=== PATIENT | female | born 1960 | race Hispanic/Latino ===

== ENCOUNTER 2020-02-14 09:40 | Emergency (ER) | payer OTHER ==
[~2020-02-14] VITALS: Ht 157.5 cm; Wt 81.6 kg
--- NOTE | 2020-02-14 11:18 | Diagnostic Imaging Report ---
EXAMINATION: Head and face CT without contrast. HISTORY: Head trauma, facial laceration. COMPARISON: None. TECHNIQUE: Multidetector axial images were obtained without contrast from the foramen magnum to the vertex and over the face. The images were reconstructed using brain and bone algorithms. Dose modulation, iterative reconstruction, and/or weight based adjustment of the mA/kV was utilized to reduce the radiation dose to as low as reasonably achievable. Head CT findings: Skull: No lytic or blastic lesions. No fractures. Parenchyma: Few scatter juxtacortical white matter hypodensities, most likely nonspecific chronic microvascular ischemic changes.. No mass, hemorrhage or CT evidence of acute vascular insult. Brain volume: Normal for age. Ventricles: No hydrocephalus or displacement. Arteries: No density suggestive of thrombus. Dural sinuses: No abnormal density. Extra-axial spaces: No abnormal density. Foramen magnum: No mass, Chiari malformation, or basilar invagination. Sella: Pallially empty, mostly CSF filled. Paranasal/mastoid sinuses: Imaged portions unremarkable. Face CT findings: Bones: Unremarkable. Facial soft tissues: Right forehead soft tissues swelling and laceration. Orbits contents: Unremarkable. Paranasal sinuses and drainage pathways: Clear and patent. Nasal septum and nasal cavities: Midline. Anatomic variations: No significant anatomic variations. Teeth: No acute abnormality of the visualized teeth. IMPRESSION: Head CT: 1. No acute posttraumatic intracranial hemorrhage. 2. Mild went matter chronic microvascular changes. Face CT: 1. No acute facial fractures. 2. Right forehead soft tissue swelling/laceration. Signed by: Dr. Tiffanie Strickland M.D. on 02/14/2020 11:14 AM
--- NOTE | 2020-02-14 11:23 | Diagnostic Imaging Report ---
EXAMINATION: CT of the cervical spine HISTORY: Trauma, neck pain. COMPARISON: None available TECHNIQUE: Multidetector helical axial images were obtained without contrast from the foramen magnum to T1. Dose modulation, iterative reconstruction, and/or weight based adjustment of the mA/kV was utilized to reduce the radiation dose to as low as reasonably achievable. FINDINGS: Alignment: Normal alignment and lordosis Soft tissues: Normal Vertebrae: Normal height and density. No acute fracture, infection or neoplasm Degenerative changes: C1-C2 to C4-C5: Normal C5-C6: Disc osteophyte compresses formation and uncovertebral arthrosis. [id number] foraminal stenoses. C6-C7: Disc ossified complex formation and uncovertebral arthrosis minimal left. No significant canal or foraminal stenosis. C7-T1: Normal IMPRESSION: 1. No acute cervical spine postraumatic abnormalities. 2. Mild chronic degenerative changes as above. Note: Acute postraumatic spinal cord, vascular or ligamentous injuries cannot adequately be assessed by CT. Signed by: Dr. Tiffanie Strickland M.D. on 02/14/2020 11:19 AM
--- NOTE | 2020-02-14 12:25 | Emergency Department Note ---
History of Present Illnes History of Present Illness Chief Complaint: Laceration History of Present Illness This is a 60 year old female arrived to the ED with complaints of a mec hanical fall. Chief Complaint Comment LACERATION ABOVE RIGHT EYE. S/P TRIP AND FALL WHILE WALKING FAST. ACTIVE BLEEDING TO SITE. COVERED WITH KERLEX FOR PRESSURE. PATIENT DENIES ANY BLURRY VISION. NO LOC. Historian: Patient Arrival Mode: Car Additional Treatment INSULATION BLOWER: NONE Timing of current episode: intermittent Chronicity: new Context: Reports trauma/injury Relieving factors: none Exacerbating factors: none Past Medical/Family History Physician Review I have reviewed the patient's past medical and family history. Any updates have been documented here. Past Medical History Recent Fever: No Clinical Suspicion of Infectio: No New/Unexplained Change in Ment: No Past Medical History: Hypertension, GERD Past Surgical History: Hysterectomy Other Surgery: HEMORRHOIDS Social History Smoking Cessation: Never Smoker Counseling Performed: No Alcohol Use: None Any Illegal Drug Use: No Other Any Pre-Existing Lines (PICC,: No Review of Systems Review of Systems Constitutional: Reports no symptoms EENTM: Reports no symptoms Cardiovascular: Reports no symptoms Respiratory: Reports no symptoms Gastrointestinal: Reports no symptoms Genitourinary: Reports no symptoms Musculoskeletal: Reports no symptoms Integumentary: Reports no symptoms Neurological: Reports no symptoms Psychological: Reports no symptoms Endocrine: Reports no symptoms Hematological/Lymphatic: Reports no symptoms Physical Exam Related Data Allergies: Uncoded Allergies: NKDA (Allergy, Mild, 07/14/09) Triage Vital Signs Vital Signs Date Time Temp Pulse Resp B/P (MAP) Pulse Ox O2 Delivery O2 Flow Rate FiO2 02/14/20 10:08 98.7 99 18 130/69 99 Room Air Physical Exam CONSTITUTIONAL Constitutional: Present well-developed, Present well-nourished HENT HENT: Present normocephalic, Present oropharynx clear/moist, Present nose normal, Present other (superficial abrasion over left eyebrow ) HENT L/R: Present left ext ear normal, Present right ext ear normal EYES Eyes: Reports PERRL, Reports conjunctivae normal NECK Neck: Present ROM normal PULMONARY Pulmonary: Present effort normal, Present breath sounds normal CARDIOVASCULAR Cardiovascular: Present regular rhythm, Present heart sounds normal, Present capillary refill normal, Present normal rate GASTROINTESTINAL Abdominal: Present soft, Present nontender, Present bowel sounds normal GENITOURINARY Genitourinary: Present exam deferred SKIN Skin: Present warm, Present dry MUSCULOSKELETAL Musculoskeletal: Present ROM normal NEUROLOGICAL Neurological: Present alert, Present oriented x 3, Present no gross motor or sensory deficits PSYCHOLOGICAL Psychological: Present mood/affect normal, Present judgement normal Results Imaging Imaging results reviewed: Yes Impressions Head CT: 1. No acute posttraumatic intracranial hemorrhage. 2. Mild went matter chronic microvascular changes. Face CT: 1. No acute facial fractures. 2. Right forehead soft tissue swelling/laceration. Imaging Comments IMPRESSION: Head CT: 1. No acute posttraumatic intracranial hemorrhage. 2. Mild went matter chronic microvascular changes. Face CT: 1. No acute facial fractures. 2. Right forehead soft tissue swelling/laceration. Assessment & Plan Medical Decision Making MDM 60-year-old female arrives to the ED after sustaining a mechanical fall, superficial abrasion noted but no osseous or intracranial abnormality. Patient stable for discharge home concussion instructions given. Assessment & Plan Final Impression: (1) Concussion (2) Closed head injury Depart Disposition: HOME, SELF-CARE Last Vital Signs Date Time Temp Pulse Resp B/P (MAP) Pulse Ox O2 Delivery O2 Flow Rate FiO2 02/14/20 11:17 98.4 66 16 136/70 99 Room Air Home Meds Active Scripts Tramadol Hcl (ULTRAM) 50 Mg Tablet, 50 MG PO Q6HR PRN for Mild Pain (1-3) or Fever>100.8, #14 TAB Prov:SERGIO GERMAIN DO 02/14/20 SERGIO GERMAIN DO Feb 14, 2020 12:25
--- NOTE | 2020-02-14 12:30 | NUR ---
LACERATION ABOVE R EYE IRRIGATED WITH N.S. PER DR'S ORDERS
[2020-02-14] MEDS ORDERED: BACITRACIN ZINC 0.9GM TP ONE (13:15)
--- NOTE | 2020-02-14 13:20 | NUR ---
BACITRACIN APPLIED TO R EYE LAC. AND WRAPPED IN KERLIX
[2020-02-14] MEDS ORDERED: ULTRAM50 MG PO (13:22)
== END 2020-02-14 13:45 | disposition home or self-care (01) ==
LOC: ER 10:29
DX: S06.0X0A Concussion without loss of consciousness, initial encounter (principal); S01.81XA Laceration without foreign body of other part of head, initial encounter; W01.0XXA Fall on same level from slipping, tripping and stumbling without subsequent striking against object, initial encounter; Y93.01 Activity, walking, marching and hiking; I10 Essential (primary) hypertension; K21.9 Gastro-esophageal reflux disease without esophagitis
CPT/HCPCS: 70450; 70486; 72125; 99284